=== PATIENT | male | born 1965 | race Caucasian/White ===

== ENCOUNTER 2023-03-11 21:11 | Emergency (ER) | payer OTHER, SELFPAY ==
--- NOTE | ~2023-03-11 | CT_ITS ---
EXAMINATION: CT abdomen pelvis wo con DATE: 03/11/2023 23:38 INDICATION: Flank pain TECHNIQUE: Computed tomography (CT) of the abdomen and pelvis was performed without intravenous contr ast. Automated exposure control and iterative reconstruction technique were employed. The dose-length product was 591.46 mGy-cm. COMPARISON: None. FINDINGS: Lower thorax: Coronary artery calcification. Liver: Normal. Biliary/Gallbladder: Gallbladder is partially collapsed. No inflammatory change. No bile duct dilatio n. Pancreas: No mass or duct dilation. Spleen: Normal. Adrenals:No mass. Kidneys: No suspicious mass, obstructing stone, or hydronephrosis. GI tract: No small or large bowel dilation. Normal appendix. Diverticulosis without diverticulitis. Mesentery/Peritoneum: No ascites, mass, or free air. Retroperitoneum: No mass. Atherosclerotic abdominal aortic and/or arterial calcifications. Pelvis: Distended but normal-appearing urinary bladder. 2.9 cm ovoid cystic lesion in the left pelvis may represent a bladder diverticulum or duplication cyst.. Soft Tissues: Soft tissues and body wall unremarkable. Bones: No acute osseous finding. IMPRESSION: No acute abdominopelvic process detected. Reviewed, dictated and finalized at location K.
[2023-03-11 21:23] VITALS: BP 171/90; PULSE 86; RESP 18; TEMP 37.3; O2SAT 98
[2023-03-11 22:25] LABS: Basophils Absolute Auto 0.1 K/mm3 (0.0-0.1); Basophils Percent Auto 0.6 % (0.2-1.2); Eosinophils Absolute Auto 0.1 K/mm3 (0-0.3); Eosinophils Percent Auto 0.9 % (0-4.4); Hematocrit 42.3 % (42.0-52.0); Hemoglobin 14.8 g/dL (14.0-18.0); Immature Granulocyte Absolute 0.04 K/mm3 (0.00-0.031); Immature Granulocyte Percent A 0.4 % (0-0.5); Lymphocytes Absolute Auto 1.16 K/mm3 (0.9-3.2); Lymphocytes Percent Auto 11.8 % (18.3-44.2); Mean Corpuscular Hemoglobin 31.2 pg (26-34); Mean Corpuscular Volume 89.1 fl (80-100); Mean Platelet Volume 8.2 fl (7.4-10.4); Monocytes Absolute Auto 0.8 K/mm3 (0.1-0.6); Monocytes Percent Auto 7.9 % (2.6-8.5); Neutrophils Absolute Auto 7.7 K/mm3 (1.3-6.7); Neutrophils Percent Auto 78.4 % (45.5-73.1); Platelet Count Result 206 k/mm3 (150-375); Red Blood Count 4.75 M/mm3 (4.6-6.20); Red Cell Distribution Width 12.8 % (11.5-14.5); White Blood Count 9.9 K/mm3 (4.5-10.0)
[2023-03-11 22:30] LABS: Appearance Urine Cloudy (Clear); Bacteria Urine None Seen /hpf; Bilirubin Urine Negative (Negative); Blood Urine Negative (Negative); Color Urine Yellow (Yellow); Glucose Urine UA 3+ mg/dL (Negative); Ketones Urine Trace mg/dL (Negative); Leukocyte Esterase Ur Negative LEU/UL (Negative); Nitrate Urine Negative (Negative); Non Pathogenic Casts 0-2; Protein Urine Negative (Negative); RBC Urine 0-2 /hpf (0-2); Specific Grav Ur 1.021 (1.001-1.035); Squamous Epithelial Cell Urine None seen /hpf (Few); Urobilinogen Urine 0.2 mg/dL (<2.0); WBC Urine 0-5 /hpf
[2023-03-11 22:32] LABS: Add Urine Microscopic? YES
[2023-03-11 22:35] LABS: Alanine Aminotransferase 50 U/L (6-50); Albumin Level 4.8 g/dL (3.5-5.1); Alkaline Phosphatase 71 U/L (38-126); Anion Gap 10 mmol/L (8-16); Aspartate Amino Transferase 39 U/L (17-59); Bilirubin,Total 0.5 mg/dL (0.2-1.3); Blood Urea Nitrogen 12 mg/dL (9-20); Calcium 9.2 mg/dL (8.4-10.2); Carbon Dioxide 30 mmol/L (22-30); Chloride 94 mmol/L (98-107); Estimated CRCL calculation 119 ml/min; Estimated Glomerular Filt Rate > 60; Glucose 168 mg/dL (65-110); Potassium 3.4 mmol/L (3.4-5.0); Sodium 134 mmol/L (137-145)
[2023-03-12] MEDS: SODIUM CHLORIDE 0.9% IV 1,000 ML 999 ML IV CONT (00:19)
[2023-03-12] MEDS: ONDANSETRON INJ 4 MG/2 ML VIAL IV PUSH (00:19)
[2023-03-12] MEDS: KETOROLAC 15 MG/ML VIAL (*BKC) IV PUSH (00:19)
--- NOTE | 2023-03-12 00:25 | ED.GENADULT ---
HPI - General Adult General Chief complaint: Back Pain/Injury Stated complaint: L flank pain Time Seen by Provider: 03/11/23 23:09 History of Present Illness HPI narrative: Patient 57-year-old gentleman who presents the emergency department with chief complaint of left-sided flank pain. The patient reports it radiates to his abdomen the patient reports that it started at rest patient denies any dysuria denies fever denies shortness of breath denies chest pain denies blood in his urine. Related Data Allergies Allergy/AdvReac Type Severity Reaction Status Date / Time No Known Allergies Allergy Mild Verified 03/11/23 23:27 Review of Systems Review of Systems: A 10 system review of systems was completed on the patient and is negative except for what is stated in the HPI. Nursing and ancillary documentation was reviewed. Exam Narrative: GENERAL: Well-appearing, well-nourished, and in no acute distress. HEAD: Normocephalic, atraumatic. EYES: PERRLA and EOMI. ENT: Nares clear, no rhinorrhea or epistaxis. Mucous membranes moist. NECK: Supple. CHEST: Clear to auscultation. No respiratory distress. HEART: Regular rate and rhythm. No murmur heard. Normal peripheral pulses. ABDOMEN: Soft, nontender, nondistended, normal active bowel sounds. EXTREMITIES: Normal range of motion. No edema. SKIN: Warm, dry, no rash. NEURO: No focal deficits. Alert and oriented x3. PSYCH: Normal mood and affect. Course Vital Signs Vital signs: Vital Signs Temperature 37.3 C 03/11/23 21:23 Pulse Rate 86 03/11/23 21:23 Respiratory Rate 18 03/11/23 21:23 Blood Pressure 171/90 H 03/11/23 21:23 Pulse Oximetry 98 03/11/23 21:23 Oxygen Delivery Room Air 03/11/23 21:23 Temperature 37.3 C 03/11/23 21:23 Pulse Rate 86 03/11/23 21:23 Respiratory Rate 18 03/11/23 21:23 Blood Pressure 171/90 H 03/11/23 21:23 Pulse Oximetry 98 03/11/23 21:23 Oxygen Delivery Room Air 03/11/23 21:23 Medical Decision Making MDM Narrative Medical decision making narrative: Differential diagnose includes musculoskeletal pain, kidney stone, UTI, Oratory studies were obtained which showed normal CBC normal CMP urinalysis showed 3+ glucose and trace ketones otherwise no evidence of UTI no blood in the urine The scan of the abdomen pelvis showed no acute abnormality Vital Signs Vital Signs: Vital Signs Temperature 37.3 C 03/11/23 21:23 Pulse Rate 86 03/11/23 21:23 Respiratory Rate 18 03/11/23 21:23 Blood Pressure 171/90 H 03/11/23 21:23 Pulse Oximetry 98 03/11/23 21:23 Oxygen Delivery Room Air 03/11/23 21:23 Temperature 37.3 C 03/11/23 21:23 Pulse Rate 86 03/11/23 21:23 Respiratory Rate 18 03/11/23 21:23 Blood Pressure 171/90 H 03/11/23 21:23 Pulse Oximetry 98 03/11/23 21:23 Oxygen Delivery Room Air 03/11/23 21:23 Lab Data 03/11/23 22:17 03/11/23 22:17 Labs: Lab Results 03/11/23 Range/Units 22:17 WBC 9.9 (4.5-10.0) K/mm3 RBC 4.75 (4.6-6.20) M/mm3 Hgb 14.8 (14.0-18.0) g/dL Hct 42.3 (42.0-52.0) % MCV 89.1 (80-100) fl MCH 31.2 (26-34) pg MCHC 35.0 (32-36) g/dl RDW 12.8 (11.5-14.5) % Plt Count 206 (150-375) k/mm3 MPV 8.2 (7.4-10.4) fl Immature Gran % (Auto) 0.4 (0-0.5) % Neut % (Auto) 78.4 H (45.5-73.1) % Lymph % (Auto) 11.8 L (18.3-44.2) % [place] % (Auto) 7.9 (2.6-8.5) % Eos % (Auto) 0.9 (0-4.4) % Baso % (Auto) 0.6 (0.2-1.2) % Lymph # (Auto) 1.16 (0.9-3.2) K/mm3 [place] # (Auto) 0.8 H (0.1-0.6) K/mm3 Eos # (Auto) 0.1 (0-0.3) K/mm3 Baso # (Auto) 0.1 (0.0-0.1) K/mm3 Abs Immat Gran (auto) 0.04 H (0.00-0.031) K/mm3 Absolute Neuts (auto) 7.7 H (1.3-6.7) K/mm3 Absolute Nucleated RBC 0.0 (0.0-0.012) K/mm3 Nucleated RBC % 0.0 (0.0-0.2) % Sodium 134 L (137-145) mmol/L Potassium 3.4 (3.4-5.0) mmol/L Chloride 94 L (98-107) mmol/L Carbon Dioxide 30 (22-30
[2023-03-12 01:21] VITALS: BP 162/88; PULSE 65; RESP 16; O2SAT 98
== END 2023-03-12 01:23 | disposition home or self-care (01) ==
PROVIDERS: Emergency Provider Emergency Medicine
DX: R10.9 Unspecified abdominal pain (principal)
CPT/HCPCS: 36415; 74176; 80053; 81001; 85025; 96361; 96374; 96375; 99284; J1885; J2405; J7030